=== PATIENT | male | born 1950 | race Caucasian/White ===

== ENCOUNTER 2019-12-30 10:44 | Inpatient (IN) | payer MEDICARE, OTHER ==
[~2019-12-30] VITALS: Ht 190.5 cm; Wt 102.3 kg
[2019-12-30] MEDS ORDERED: LOSA25TA14 PO (11:05)
[2019-12-30] MEDS ORDERED: [UNRECOGNIZED DRUG - CODE] PO (11:05)
[2019-12-30] MEDS ORDERED: FLOM0.4C39 PO (11:05)
[2019-12-30] MEDS ORDERED: EFFE150C2 PO (11:05)
[2019-12-30] MEDS ORDERED: VENL-37 PO (11:05)
--- NOTE | 2019-12-30 11:30 | REP ---
Clinical: Cerebrovascular accident . Comparison: None . Findings: The mediastinum and cardiac silhouette are stable and within normal limits for portable technique. The lung traore are clear without acute consolidation, effusion, or pneumothorax. Skeletal structures are intact. Impression: No acute cardiopulmonary process appreciated. Electronically Signed by Tej Samson MD 12/30/2019 11:22 A
[2019-12-30 11:49] LABS: EOS # 0.1 10^3/uL (0.0-0.5); EOS % 1.4 % (0.0-3.0); HEMATOCRIT 45.7 % (42.0-52.0); HEMOGLOBIN 15.5 g/dl (13.5-17.5); LYMPH # 1.2 10^3/uL (1.5-5.0); LYMPH % 23.8 % (24.0-44.0); MEAN CORPUSCULAR HEMOGLOBIN 30.7 pg (27.0-33.0); MEAN CORPUSCULAR HGB CONC 33.9 g/dl (32.0-36.5); MEAN CORPUSCULAR VOLUME 90.5 fl (80.0-96.0); MONO # 0.3 10^3/uL (0.0-0.8); MONO % 6.8 % (0.0-5.0); NEUTROPHILS # 3.3 10^3/uL (1.5-8.5); NEUTROPHILS % 67.8 % (36.0-66.0); PLATELET COUNT, AUTOMATED 250 10^3/uL (150-450); RED BLOOD COUNT 5.05 10^6/uL (4.30-6.10); WHITE BLOOD COUNT 4.9 10^3/uL (4.0-10.0)
--- NOTE | 2019-12-30 11:56 | REP ---
CT BRAIN WITHOUT CONTRAST: HISTORY: CVA. No comparison study. CT FINDINGS: Digital preliminary wool spotter radiograph is unremarkable. There is heavy vascular calcification in the distal internal carotid and vertebral arteries. The bony calvarium is intact. Visualized paranasal sinuses are clear. No intraorbital abnormality. There is mild physiologic calcification of the basal ganglia bilaterally. There is no evidence of intracranial hemorrhage. No extra-axial fluid collection is seen. No mass or acute infarction is seen. A tiny low density area is seen in the right thalamus consistent with a tiny old lacunar infarct. IMPRESSION: Vascular calcification. Tiny old lacunar infarct in the right thalamus. No acute intracranial abnormality seen. Electronically Signed by Ayden Duvall MD 12/30/2019 01:07 P
[2019-12-30 11:59] LABS: INR 1.12; PROTHROMBIN TIME 14.1 SECONDS (11.8-14.0)
[2019-12-30 12:20] LABS: CK-MB VALUE MASS 3.2 NG/ML (<3.6); CPK CREATINE PHOSPHOKINASE 148 U/L (39-308); MB/CK RELATIVE INDEX 2.16 (< OR =4); TROPONIN I < 0.02 NG/ML (< 0.10)
--- NOTE | 2019-12-30 15:48 | REP ---
MRI brain without contrast: History: TIA. Comparison is made with today's CT study of the brain. Technique: Axial and sagittal imaging planes are utilized for T1 and T2-weighted scans. Sequences include spin-echo, fast spin echo, FLAIR, and diffusion weighted sequences. MRI findings: No bony calvarial lesion is seen. Craniocervical junction and upper cervical cord are normal in appearance. There is no MR evidence of significant paranasal sinus disease. No intraorbital abnormalities appreciated. There is no evidence of intracranial hemorrhage. There is an old lacunar infarct in the right thalamus corresponding to the CT study. This is quite small. Diffusion weighted scans today demonstrate a tiny focus of apparent restricted diffusion to the right of midline in the selam. There is no corresponding area of focally altered signal intensity on other sequences. A small focus of acute ischemia must be suspected. No other area of restricted diffusion is seen on diffusion weighted scans. FLAIR images demonstrate scattered foci of subcortical and periventricular white matter T2 hyperintensity consistent with small vessel atherosclerotic changes. No other evidence of infarction is seen. No extra-axial fluid collection, mass, or midline shift is observed. Impression: There is a tiny focus of restricted diffusion in the right central selam consistent with a focus of acute ischemia. There is an old tiny lacunar infarct in the right thalamus. Small vessel changes. Otherwise negative. Electronically Signed by Ayden Duvall MD 12/30/2019 05:17 P
[2019-12-30] MEDS ORDERED: ACETAMINOPHEN TAB 650MG DOSE (2X325MG) PO PRN (16:00)
--- NOTE | 2019-12-30 16:05 | REP ---
MR angiography the brain without contrast: History: TIA. Technique: 3-D [id number] MR angiography of the brain is acquired in the usual fashion and maximal intensity projection images were generated in rotational format about the vertical and horizontal axes. In addition, source axial T1-weighted images are viewed in cine mode. MR angiographic findings: The right distal vertebral artery is small and ends in the posterior inferior cerebellar artery. The left distal vertebral and the basilar artery are widely patent. Posterior cerebral and superior cerebellar vessels are unremarkable proximally. There are two separate focal stenoses in the left posterior cerebral artery A1 in the P2 segment and the other in the P3 segment. The right posterior cerebral artery appears intact. There is minimal atherosclerotic irregularity of the basilar artery. The distal internal carotid arteries are unremarkable bilaterally. Anterior middle cerebral arteries are unremarkable. No evidence of moreau aneurysm or arteriovenous malformation is seen. Impression: There are two focal stenoses in the left posterior cerebral artery as described above. There is atherosclerotic irregularity of the basilar artery. The right vertebral artery is small and terminates in the PICA. Otherwise negative. Electronically Signed by Ayden Duvall MD 12/30/2019 05:18 P
[2019-12-30] MEDS ORDERED: VENL75CA2 PO (16:36)
[2019-12-30 17:15] LABS: ALBUMIN 4.1 GM/DL (3.2-5.2); ALT/SGPT 24 U/L (12-78); BILIRUBIN,TOTAL 0.4 MG/DL (0.2-1.0); BLOOD UREA NITROGEN 20 MG/DL (7-18); CALCIUM LEVEL 9.2 MG/DL (8.8-10.2); CARBON DIOXIDE LEVEL 30 MEQ/L (21-32); CHLORIDE LEVEL 106 MEQ/L (98-107); CHOLESTEROL LEVEL 167 MG/DL (<200); CHOLESTEROL RISK RATIO 3.711 (<5); CREATININE FOR GFR 1.27 MG/DL (0.70-1.30); GLUCOSE, FASTING 115 MG/DL (70-100); HDL CHOLESTEROL 45 MG/DL (>40); LDL CHOLESTEROL 104 MG/DL (<100); NON-HDL-C 122 MG/DL; POTASSIUM SERUM 4.3 MEQ/L (3.5-5.1); SODIUM LEVEL 144 MEQ/L (136-145); TOTAL PROTEIN 7.7 GM/DL (6.4-8.2); TRIGLYCERIDES LEVEL 89 MG/DL (<150)
--- NOTE | 2019-12-30 17:22 | HPEPDOC ---
General Date of Admission Dec 30, 2019 at 15:52 Date of Service: Dec 30, 2019 Chief Complaint The patient is a 69-year-old male admitted with a reason for visit of Acute Cva. Source: Patient, Family Exam Limitations: No limitations Timing/Duration: Resolved prior to arrival Severity: Moderate Associated Symptoms: Diaphoresis, Weakness History of Present Illness Mr. Bills is a 69 year old male who was brought to the ED by EMS after symptoms suspicious for a stroke. Pt stated that he has issues with constipation due to a very enlarged prostate. This morning after a BM, he felt dizzy (this is a chronic Sx) he started to go downstairs when he felt he wasn't able to move his left arm or his left leg. Pt stated the episode started approx 9:30-10a and lasted 15-20 minutes. When the ambulance arrived, his Sx had already resolved. Pt stated he doesn't know if he lost consciousness or not, but he became very dizzy and sweaty during the episode. He has not had anything to eat or drink today and feels hungry and thirsty, but otherwise he denied any residual or new symptoms. Pt stated he was catheterized 2 weeks ago. He is awaiting ?TURP but in the meantime suffers urinary retention and constipation due to his enlarged prostate. Pt stated that he had some significant blood loss during the catheter insertion. 3 days ago, he had done a lot of walking, later noticing blood in the urine. He spoke with his urologist (he cannot recall her name) and it has resolved since. Home Medications Scheduled Ascorbic Acid (Vitamin C) 1,000 Mg Tablet, 1,000 MG PO DAILY, (Reported) Losartan Potassium (Losartan Potassium) 25 Mg Tablet, 25 MG PO DAILY, (Reported) Tamsulosin HCl (Flomax) 0.4 Mg Capsule, 0.4 MG PO BID, (Reported) Venlafaxine HCl (Effexor Xr) 150 Mg Cap.er.24h, 150 MG PO DAILY, (Reported) Venlafaxine HCl (Venlafaxine HCl ER) 75 Mg Cap.er.24h, 75 MG PO DAILY, (Reported) Allergies Coded Allergies: No Known Allergies (Unverified , 12/30/19) Past Medical History Medical History Hypertension Depression Pre-Diabetes BPH with cerna catheter Surgical History none Family History Significant Family History: Diabetes (Mother ), Other (Father (dec) cirrhosis ) Social History * Smoker: former Smoker (quit 25 years prior ) Alcohol: rarely Drugs: denies Recent Travel/Sick Contacts: Denies: Recent travel, Recent sick contacts Psychosocial History: Depression A-FIB/CHADSVASC A-FIB History Current/History of A-Fib/PAF?: No Current PO Anticoag Therapy: No Review of Systems Constitutional: Denies: Chills, Fever, Night Sweats Eyes: Denies: Pain ENT: Denies: Head Aches Skin: Denies: Rash Pulmonary: Denies: Dyspnea, Cough Cardiovascular: Denies: Chest Pain, Palpitations, Orthopnea, Paroxysmal Noc. Dyspnea, Lt Headedness Gastrointestinal: Denies: Nausea, Vomiting, Abdominal Pain, Diarrhea Genitourinary: Reports: Incontinence, Hematuria, Retention; Denies: Dysuria Hematologic: Denies: Bruising Musculoskeletal: Denies: Neck Pain, Back Pain, Joint Pain, Muscle Pain, Spasms Neurological: Denies: Weakness, Numbness, Change in speech, Confusion Psych: Reports: Mood Normal, Depression Physical Examination General Exam: Positive: Alert, Cooperative, No Acute Distress Eye Exam: Positive: PERRLA, Conjunctiva & lids normal, EOMI; Negative: Sclera icteric ENT Exam: Positive: Atraumatic, Mucous membr. moist/pink (mucus membranes dry ), Pharynx Normal Neck Exam: Positive: Supple; Negative: JVD, thyromegaly Chest Exam: Positive: Clear to auscultation, Normal air movement Heart Exam: Positive: Rate Normal, Regular Rhythm, Normal S1, Normal S2; Negative: Murmurs, Rubs Telemetry: Positive: No significant arrhythmia Abdomen Exam: Positive: Normal bowel sounds, Soft; Negative: Tenderness, Hepatospenomegaly Extremity Exam: Positive: Normal pulses; Negative: Clubbing, Cyanosis, Edema Skin Exam: Positive: Nl turgor and temperature Neuro Exam: Positive: Normal Gait, Normal Speech, Strength at 5/5 X4 ext, Cranial Nerves 3-12 NL Psych Exam: Positive: Oriented x 3, Other (Eccentric, possibly histrionic ) Vital Signs Vital Signs Date Time Temp Pulse Resp B/P (MAP) Pulse Ox O2 Delivery O2 Flow Rate FiO2 12/30/19 16:00 97 154/84 (107) 97 Room Air 2/13/20 13:30 17 12/30/19 10:58 97.0 Laboratory Data Labs 24H Laboratory Tests 2 12/30/19 11:33: Immature Granulocyte % (Auto) 0.2, Neutrophils (%) (Auto) 67.8H, Lymphocytes (%) (Auto) 23.8L, Monocytes (%) (Auto) 6.8H, Eosinophils (%) (Auto) 1.4, Basophils (%) (Auto) 0.0, Neutrophils # (Auto) 3.3, Lymphocytes # (Auto) 1.2L, Monocytes # (Auto) 0.3, Eosinophils # (Auto) 0.1, Basophils # (Auto) 0.0, Nucleated Red Blood Cells % (auto) 0.0, Prothrombin Time 14.1H, Prothromb Time International Ratio 1.12, Activated Partial Thromboplast Time 26.0, Total Creatine Kinase 148, Creatine Kinase MB 3.2, Creatine Kinase MB Relative Index 2.16, Troponin I < 0.02 12/30/19 11:34: POC Glucose (Misc Panel) 120H, POC Sodium (Misc Panel) 141, POC Potassium (Misc Panel) 4.3, POC Chloride (Misc Panel) 103, POC Total CO2 (Misc Panel) 28.0H, POC Blood Urea Nitrogen (Misc Panel 20, POC Ionized Calcium (Misc Panel) 4.6, POC Creatinine (Misc Panel) 1.2, POC Hematocrit (Misc Panel) 47.0 CBC/BMP Laboratory Tests 12/30/19 11:33 Assessment/Plan Mr. Bills is a 69 year old male who was brought to the ED by EMS after symptoms suspicious for a stroke. Pt stated that he has issues with constipation due to a very enlarged prostate. This morning after a BM, he felt dizzy (this is a chronic Sx) he started to go downstairs when he felt he wasn't able to move his left arm or his left leg. Pt stated the episode started approx 9:30-10a and lasted 15-20 minutes. When the ambulance arrived, his Sx had already resolved. Pt stated he doesn't know if he lost consciousness or not, but he became very dizzy and sweaty during the episode. He has not had anything to eat or drink today and feels hungry and thirsty, but otherwise he denied any residual or new symptoms. Pt stated he was catheterized 2 weeks ago. He is awaiting ?TURP but in the meantime suffers urinary retention and constipation due to his enlarged prostate. Pt stated that he had some significant blood loss during the catheter insertion. 3 days ago, he had done a lot of walking, later noticing blood in the urine. He spoke with his urologist (he cannot recall her name) and it has resolved since. Pt has a PMHx which includes: HTN, Depression, BPH with urinary retention, catheter in place, pre-DM. MRI-Brain without Contrast Impression: "There is a tiny focus of restricted diffusion in the right central selam consistent with a focus of acute ischemia. There is an old tiny lacunar infarct in the right thalamus. Small vessel changes. Otherwise negative." MRA BRAIN W/O CONTRAST Impression: "There are two focal stenoses in the left posterior cerebral artery as described above. There is atherosclerotic irregularity of the basilar artery. The right vertebral artery is small and terminates in the PICA. Otherwise negative." CVA, per MRI/A - all symptoms have resolved, no focal-neuro symptoms on exam - pt is not anti-coagulated outpatient - CBC, Chems, Lipid Panel WNL - -ve troponin and CK - EKG reviewed - no acute changes noted. Placed on telemetry - ECHO - pending - Neurology consult; further management based on recommendations HTN - Pt reported strict medication adherence - Continue Losartan with adjustments prn for tight BP control BPH - Catheter in place - Close monitoring for symptoms - Try to get the name of urologist from son Depression - Continue outpatient Effexor Pre-Diabetes - Consistent Carbohydrate diet - CMP - pending - monitor FBS daily Plan / VTE VTE Prophylaxis Ordered?: Yes (Heparin ) KATERINA GONZALEZ PA-C Dec 30, 2019 17:21
[2019-12-30] MEDS ORDERED: CLOPIDOGREL 75 MG TAB PO ONE (17:30)
[2019-12-30] MEDS: ASPIRIN 81 MG ENTERIC TAB PO SCH (17:55)
[2019-12-30] MEDS ORDERED: BISACODYL 10 MG SUPP PR ONE (19:00)
[2019-12-30 20:15] VITALS: BP 223/95
[2019-12-30 21:00] VITALS: BP 188/90
[2019-12-30] MEDS ORDERED: VENLAFAXINE **XR** 75MG CAPSULE PO SCH (21:00)
[2019-12-30] MEDS ORDERED: ATORVASTATIN 20 MG TAB PO SCH ×2 (21:00)
[2019-12-30] MEDS: TAMSULOSIN 0.4 MG CAP PO SCH (21:35)
[2019-12-30] MEDS: SENOKOT S TAB PO SCH (21:36)
[2019-12-30] MEDS: HEPARIN SOD (PORCINE) 5000 UNITS/ML VIAL (J1644 PER 1000UNITS) SC SCH (21:37)
[2019-12-30 22:00] VITALS: BP 178/88
[2019-12-31 00:11] VITALS: BP 158/88
[2019-12-31 04:00] VITALS: BP 148/84
--- NOTE | 2019-12-31 04:54 | ECGEPIP ---
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
[2019-12-31] MEDS ORDERED: BISACODYL 10 MG SUPP PR PRN (06:00)
[2019-12-31 07:15] LABS: HEMATOCRIT 43.4 % (42.0-52.0); HEMOGLOBIN 14.6 g/dl (13.5-17.5); MEAN CORPUSCULAR HEMOGLOBIN 29.9 pg (27.0-33.0); MEAN CORPUSCULAR HGB CONC 33.6 g/dl (32.0-36.5); MEAN CORPUSCULAR VOLUME 88.9 fl (80.0-96.0); PLATELET COUNT, AUTOMATED 237 10^3/uL (150-450); RED BLOOD COUNT 4.88 10^6/uL (4.30-6.10)
[2019-12-31 07:52] LABS: ALBUMIN 3.6 GM/DL (3.2-5.2); ALT/SGPT 23 U/L (12-78); BILIRUBIN,TOTAL 0.3 MG/DL (0.2-1.0); BLOOD UREA NITROGEN 22 MG/DL (7-18); CALCIUM LEVEL 8.8 MG/DL (8.8-10.2); CARBON DIOXIDE LEVEL 29 MEQ/L (21-32); CHLORIDE LEVEL 107 MEQ/L (98-107); CREATININE FOR GFR 1.16 MG/DL (0.70-1.30); GLOMERULAR FILTRATION RATE > 60.0 (>49); GLUCOSE, FASTING 115 MG/DL (70-100); POTASSIUM SERUM 3.5 MEQ/L (3.5-5.1); SODIUM LEVEL 142 MEQ/L (136-145); TOTAL PROTEIN 6.6 GM/DL (6.4-8.2)
[2019-12-31 08:00] VITALS: BP 123/79
--- NOTE | 2019-12-31 08:58 | REP ---
Clinical: Acute stroke . Technique: Christie scale and color Doppler evaluation using linear high frequency transducer Findings: Two-dimensional christie scale and color images demonstrate mixed atheromatous plaquing through the bilateral common carotid arteries extending to the carotid bulbs and proximal internal carotid arteries (right greater than left). Doppler interrogation demonstrates normal arterial wave patterns and velocities with moderate spectral broadening. Normal flow direction noted in the bilateral vertebral arteries. RIGHT (cm/s) LEFT (cm/s) ICA peak systolic velocity 58.3 57.9 ICA diastolic velocity 22.5 18.8 ECA peak systolic velocity 128.8 97.9 CCA peak systolic velocity 119.6 92.3 ICA/CCA ratio 0.5 0.6 Impression: No hemodynamically significant areas of narrowing or stenosis appreciated. Based on set standards narrowing falls within the less than 50% range bilaterally (left greater than right) . Electronically Signed by Tej Samson MD 12/31/2019 08:49 A
[2019-12-31 09:00] VITALS: BP 123/79
[2019-12-31] MEDS ORDERED: LOSARTAN 25 MG TAB PO SCH (09:00)
[2019-12-31] MEDS ORDERED: VENLAFAXINE **XR** 75MG CAPSULE PO SCH (09:00)
[2019-12-31] MEDS: ASPIRIN 81 MG ENTERIC TAB PO SCH (09:09)
[2019-12-31] MEDS: SENOKOT S TAB PO SCH (09:09)
[2019-12-31] MEDS: TAMSULOSIN 0.4 MG CAP PO SCH (09:09)
[2019-12-31] MEDS: HEPARIN SOD (PORCINE) 5000 UNITS/ML VIAL (J1644 PER 1000UNITS) SC SCH (09:11)
--- NOTE | 2019-12-31 09:40 | CR ---
DATE OF CONSULTATION: 12/31/2019 REFERRING PROVIDER: Dr. Ruth Marrufo REASON FOR CONSULTATION: Stroke. HISTORY OF PRESENT ILLNESS The patient is a 69-year-old male with past medical history significant for depression who is visiting from [place]. The patient had intermittent left face, arm and leg weakness. The patient had come to the hospital due to progressive intermittent symptoms. He was noted to have findings on MRI of a right pontine acute ischemic stroke. 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 The patient will be placed on 81 mg aspirin, Plavix 75 mg daily for high-grade intracranial stenosis lifelong. Recommend optimization of his hypertension which likely contributed towards his stroke. The patient quit tobacco 30 years ago, which may have contributed towards his intracranial stenosis. At the present time the patient states that his symptoms have resolved. He is doing much better. The patient denies having any weakness of the left arm or face at this time. He is noted to have some residual weakness of his left triceps. REVIEW OF SYSTEMS: 14-point review of systems obtained and is negative except as per HPI. PAST MEDICAL HISTORY: Hyperlipidemia. Depression. Benign prostatic hypertrophy (BPH). PAST SURGICAL HISTORY: None. Two weeks ago the patient had bladder drainage due to severe BPH. SOCIAL HISTORY: The patient smoked for 35 years, quit 30 years ago. Denies use of any alcohol or illicit drugs. FAMILY HISTORY: Noncontributory. ALLERGIES: None. HOME MEDICATIONS: - Cozaar 25 mg daily - venlafaxine 150 mg a.m., 75 mg p.m. XR formulation - Flomax 0.4 mg twice a day PHYSICAL EXAMINATION: Blood pressure is 161/74, pulse rate is 102, respiratory rate is 16, temperature is 97 degrees Fahrenheit, oxygenation 96% on room air. The patient is awake, alert, oriented to person, place and time. Speech language, comprehension and repetition are intact. Pupils are 3 mm round, reactive to light. Extraocular movements are intact in all directions without nystagmus. Sensation V1, V2, V3 is intact to light touch. No facial asymmetry to activation. Palate elevates symmetrically. Tongue is midline. No weakness of sternocleidomastoids bilaterally. There is no pronator drift. Strength is 5/5 including bilateral biceps, deltoids, handgrip, iliopsoas, quadriceps, anterior tibialis. The right triceps is 5/5 left triceps is 4+. Deep tendon reflexes are increased bilaterally, upgoing toes are noted bilaterally. Sensory is intact to light touch in all four extremities. ASSESSMENT: 1. Acute ischemic stroke of right selam with transient left face, arm, leg weakness with residual left arm weakness. 2. 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 PLAN: 1. Start aspirin 81 mg daily plus Plavix 75 mg daily lifelong due to high-grade intracranial stenosis. 2. Can start low-dose statin therapy. 3. Obtain echocardiogram, carotid ultrasound. Continue telemetry monitoring. Physical therapy/occupational therapy (PT/OT) evaluation. The patient will need to followup with neurology once returning back to [place] after his visit in [place], [place].
[2019-12-31] MEDS ORDERED: CLOPIDOGREL 75 MG TAB PO ONE (10:15)
[2019-12-31 12:00] VITALS: BP 163/91
[2019-12-31] MEDS ORDERED: ATOR1TAB21 PO (12:05)
[2019-12-31] MEDS ORDERED: PLAV1TAB2 PO (12:05)
[2019-12-31] MEDS ORDERED: ASPI81TAEC PO (12:05)
--- NOTE | 2019-12-31 13:21 | DS.PDOC ---
Discharge Summary General Date of Admission Dec 30, 2019 at 15:52 Date of Discharge 12/31/2019 Discharge Summary PROCEDURES PERFORMED DURING STAY: [None]. ADMITTING DIAGNOSES: 1. CVA 2. HTN 3. BPH 4. Depression 5. Pre-Diabetes DISCHARGE DIAGNOSES: 1. CVA 2. HTN 3. BPH 4. Depression 5. Pre-Diabetes COMPLICATIONS/CHIEF COMPLAINT: Acute Cva. HISTORY OF PRESENT ILLNESS: "Mr. Bills is a 69 year old male who was brought to the ED by EMS after symptoms suspicious for a stroke. Pt stated that he has issues with constipation due to a very enlarged prostate. This morning after a BM, he felt dizzy (this is a chronic Sx) he started to go downstairs when he felt he wasn't able to move his left arm or his left leg. Pt stated the episode started approx 9:30-10a and lasted 15-20 minutes. When the ambulance arrived, his Sx had already resolved. Pt stated he doesn't know if he lost consciousness or not, but he became very dizzy and sweaty during the episode. He has not had anything to eat or drink today and feels hungry and thirsty, but otherwise he denied any residual or new symptoms. Pt stated he was catheterized 2 weeks ago. He is awaiting ?TURP but in the meantime suffers urinary retention and constipation due to his enlarged prostate. Pt stated that he had some significant blood loss during the catheter insertion. 3 days ago, he had done a lot of walking, later noticing blood in the urine. He spoke with his urologist (he cannot recall her name) and it has resolved since. Pt has a PMHx which includes: HTN, Depression, BPH with urinary retention, catheter in place, pre-DM." HOSPITAL COURSE: Pt was admitted to the hospital as MR confirmed acute ischemic stroke (see below). Pt reported that his Sx had resolved prior to his ED arrival. Further work-up included telemetry, USG carotids, Lipid profile, ECHO (see below). Neuro consult placed; Dr. Fofana recommended ASA + Plavix + Statin low-dose. Pt is to follow-up with neurology once he returns to [place] after visiting his son. DISCHARGE MEDICATIONS: Please see below. ALLERGIES: Please see below. PHYSICAL EXAMINATION ON DISCHARGE: VITAL SIGNS: Please see below. General Exam: Positive: Alert, Cooperative, No Acute Distress Eye Exam: Positive: PERRLA, Conjunctiva & lids normal, EOMI; Negative: Sclera icteric ENT Exam: Positive: Atraumatic, Mucous membr. moist/pink, Pharynx Normal Neck Exam: Positive: Supple; Negative: JVD, thyromegaly Chest Exam: Positive: Clear to auscultation, Normal air movement Heart Exam: Positive: Rate Normal, Regular Rhythm, Normal S1, Normal S2; Negative: Murmurs, Rubs Telemetry: Positive: No significant arrhythmia Abdomen Exam: Positive: Normal bowel sounds, Soft; Negative: Tenderness, Hepatospenomegaly Extremity Exam: Positive: Normal pulses; Negative: Clubbing, Cyanosis, Edema Skin Exam: Positive: Nl turgor and temperature Neuro Exam: Positive: Normal Gait, Normal Speech, Strength at 5/5 X4 ext, Cranial Nerves 3-12 NL Psych Exam: Positive: Oriented x 3, Other (Eccentric, possibly histrionic ) LABORATORY DATA: Please see below. IMAGING: MRI-Brain without Contrast Impression: "There is a tiny focus of restricted diffusion in the right central selam consistent with a focus of acute ischemia. There is an old tiny lacunar infarct in the right thalamus. Small vessel changes. Otherwise negative." MRA BRAIN W/O CONTRAST Impression: "There are two focal stenoses in the left posterior cerebral artery as described above. There is atherosclerotic irregularity of the basilar artery. The right vertebral artery is small and terminates in the PICA. Otherwise negative." Duplex,carotid (complete) Impression: No hemodynamically significant areas of narrowing or stenosis appreciated. Based on set standards narrowing falls within the less than 50% range bilaterally (left greater than right) . CT Head without contrast IMPRESSION: Vascular calcification. Tiny old lacunar infarct in the right thalamus. No acute intracranial abnormality seen. PORTABLE CHEST X-RAY Impression: No acute cardiopulmonary process appreciated. ACTIVITY: [As tolerated]. DIET: As tolerated DISCHARGE PLAN: Discharge home with ASA, Plavix and Lipitor. Close f/u with PCP and neurology once returned to [place]. ECHO results will be available on the patient portal. DISPOSITION: Discharge home DISCHARGE INSTRUCTIONS: 1. see above ITEMS TO FOLLOWUP ON ON OUTPATIENT: 1. see above DISCHARGE CONDITION: [Stable]. TIME SPENT ON DISCHARGE: 34 minutes Vital Signs/I&Os Vital Signs Date Time Temp Pulse Resp B/P (MAP) Pulse Ox O2 Delivery O2 Flow Rate FiO2 12/31/19 09:00 123/79 12/31/19 08:00 97.9 96 19 96 Room Air I&O- Last 24 Hours up to 6 AM 12/31/19 06:00 Intake Total 360 ml Output Total 1100 ml Balance -740 ml Laboratory Data Labs 24H Laboratory Tests 2 12/31/19 07:02: Nucleated Red Blood Cells % (auto) 0.0, Anion Gap 6L, Glomerular Filtration Rate > 60.0, Calcium Level 8.8, Total Bilirubin 0.3, Aspartate Amino Transf (AST/SGOT) 14, Alanine Aminotransferase (ALT/SGPT) 23, Alkaline Phosphatase 92, Total Protein 6.6, Albumin 3.6, Albumin/Globulin Ratio 1.20 CBC/BMP Laboratory Tests 12/31/19 07:02 Discharge Medications Scheduled Ascorbic Acid (Vitamin C) 1,000 Mg Tablet, 1,000 MG PO DAILY, (Reported) Aspirin (Aspirin EC) 81 Mg Tablet.dr, 81 MG PO DAILY Atorvastatin Calcium (Atorvastatin Calcium) 20 Mg Tablet, 20 MG PO QHS Clopidogrel Bisulfate (Plavix) 75 Mg Tablet, 75 MG PO DAILY Losartan Potassium (Losartan Potassium) 25 Mg Tablet, 25 MG PO DAILY, (Reported) Tamsulosin HCl (Flomax) 0.4 Mg Capsule, 0.4 MG PO BID, (Reported) Venlafaxine HCl (Effexor Xr) 150 Mg Cap.er.24h, 150 MG PO DAILY, (Reported) Venlafaxine HCl (Venlafaxine HCl ER) 75 Mg Cap.er.24h, 75 MG PO DAILY, (Reported) Allergies Coded Allergies: No Known Allergies (Unverified , 12/30/19) KATERINA GONZALEZ PA-C Dec 31, 2019 13:21
--- NOTE | 2020-01-02 08:06 | ECHO ---
DATE OF PROCEDURE: 12/29/2019 HEIGHT: 75 inches. WEIGHT: 224 pounds. BODY SURFACE AREA: 2.31 m2 REFERRING PHYSICIAN: Lisbeth Neri PA-C. INDICATION: Cerebrovascular accident (CVA) - cardiac source of embolic material? MEASUREMENTS: 2D Measurements: RV - 3.6 cm LV - 5.3 cm Septum -1.1 cm Posterior wall - 1.1 cm Aortic root - 3.4 cm Ascending aorta 3.9 cm LA - 4.1 cm LVEF - 65% Doppler Measurements: AV - 1.25 meters per second LVOT - 1.15 meters per second LVOT diameter - 2.1 cm MV-E - 53, A -94, E/A ratio 0.6 Early mitral deceleration time - 158 milliseconds E prime medial - 4, A prime medial - 8, E prime lateral -10.4 Average E/E prime ratio 7.4/PCWP - 11 mmHg PV - 0.8 meters per second Pulmonary artery acceleration time - 100 milliseconds PASP - 37 mmHg IVC - 1.8 cm COMMENTS: Normal sinus rhythm without intraventricular conduction disturbance. Technically challenging study in light of the patient's body habitus but some diagnostically useful information was still obtained. M-mode and two-dimensional echocardiography was performed with pulsed, continuous wave, color flow and tissue Doppler studies. Normal left ventricular size, wall thickness and wall motion. Mildly dilated left atrium with grade 1 LV diastolic dysfunction but currently normal estimated mean left atrial pressure. Normal right heart chamber sizes with normal wall motion and mild estimated pulmonary hypertension. Normal IVC size and collapse against an elevated central venous pressure. Normal-appearing aortic valve and function. Normal aortic root diameter but mildly dilated ascending aorta. Normal-appearing mitral valvular apparatus and function. Normal appearing tricuspid valve function. No apparent intracardiac mass or pericardial effusion. In light of the patient's body habitus and some technical visual difficulties with image quality, if a cardiac source of embolic material is seriously suspect, a transesophageal echocardiogram would be advised.
== END 2019-12-31 13:55 | disposition home or self-care (01) | DRG 66 ==
LOC: M ED 10:44 → M ED INP 15:52
PROVIDERS: ADMIT Internal Medicine Nephrology; ATTEND Internal Medicine Nephrology
DX: I63.9 Cerebral infarction, unspecified (principal); I10 Essential (primary) hypertension; N40.0 Benign prostatic hyperplasia without lower urinary tract symptoms; F32.9 Major depressive disorder, single episode, unspecified; R73.03 Prediabetes; R33.9 Retention of urine, unspecified; Z79.899 Other long term (current) drug therapy; Z87.891 Personal history of nicotine dependence